=== PATIENT | female | born 1985 | race Asian ===

== ENCOUNTER 2024-08-22 12:48 | Emergency (ER) | payer OTHER ==
[~2024-08-22] VITALS: Ht 167.6 cm; Wt 60.2 kg
--- NOTE | 2024-08-22 13:13 | ED.PDOC ---
History of Present Illness HPI Comments 39-year-old female with no PMHx presents with a chief complaint of SOB and anxiety x 45 minutes ago. Patient states that she was sitting in the car when she began to have an onset of SOB. Patient mentions that she panicked and felt tingling in her hands and came into the ER. Patient is able to speak in full, complete sentences at this time. No signs of acute distress noted. 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 Family History Family History: Reviewed,noncontributory to illness Social History Smoker: Non-Smoker Alcohol: Denies ETOH Use Drugs: Denies Drug Use Lives In: Home Constitutional: denies: chills, diaphoresis, fatigue, fever, malaise, sweats, weakness, others EENTM: denies: blurred vision, double vision, ear bleeding, ear discharge, ear drainage, ear pain, ear ringing, eye pain, eye redness, hearing loss, mouth pain, mouth swelling, nasal discharge, nose bleeding, nose congestion, nose pain, photophobia, tearing, throat pain, throat swelling, voice changes, others Respiratory: reports: shortness of breath; denies: cough, hemoptysis, orthopnea, SOB at rest, SOB with excertion, stridor, wheezing, others Cardiovascular: denies: chest pain, dizzy spells, diaphoresis, Dyspnea on exertion, edema, irregular heart beat, left arm pain, lightheadedness, palpitations, PND, syncope, others Gastrointestinal: denies: abdomen distended, abdominal pain, blood streaked bowels, constipated, diarrhea, dysphagia, difficulty swallowing, hematemesis, melena, nausea, poor appetite, poor fluid intake, rectal bleeding, rectal pain, vomiting, others Genitourinary: denies: abnormal vagina bleeding, burning, dyspareunia, dysuria, flank pain, frequency, hematuria, incontinence, pain, , vagina discharge, urgency, others Neurological: denies: dizziness, fainting, headache, left sided numbness, left sided weakness, numbness, paresthesia, pre-existing deficit, right sided numbness, right sided weakness, seizure, speech problems, tingling, tremors, weakness, others Musculoskeletal: denies: back pain, gout, joint pain, joint swelling, muscle pain, muscle stiffness, neck pain, others Integumetry: denies: bruises, change in color, change in hair/nails, dryness, laceration, lesions, lumps, rash, wounds, others Allergic/Immunocompromised: denies: Difficulty Healing, Frequent Infections, Hives, Itching, others Hematologic/Lymphatic: denies: anemia, blood clots, easy bleeding, easy bruising, swollen glands, others Endocrine: denies: excessive hunger, excessive sweating, excessive thirst, excessive urination, flushing, intolerance to cold, intolerance to heat, u nexplained weight gain, unexplained weight loss, others Psychiatric: reports: anxiety; denies: bipolar disorder, depression, hopeless, panic disorder, schizophrenia, sleepless, suicidal, others All Other Systems: Reviewed and Negative Physical Exam General Appearance: Moderate Distress, Normal HEENT: Normal ENT Inspection, Pharynx Normal, TMs Normal Neck: Full Range of Motion, Non-Tender, Normal, Normal Inspection Respiratory: Chest Non-Tender, Lungs Clear, No Accessory Muscle Use, No Respiratory Distress, Normal Breath Sounds Cardiovascular: No Edema, No JVD, No Murmur, No Gallop, Normal Peripheral Pulses, Regular Rate/Rhythm Breast Exam: Deferred Gastrointestinal: No Organomegaly, Non Tender, No Pulsatile Mass, Normal Bowel Sounds, Soft Genitalia: Deferred Pelvic: Deferred Rectal: Deferred Extremities: No calf tenderness, Normal capillary refill, Normal inspection, Normal range of motion, Non-tender, No pedal edema Musculoskeletal : Apperance: Normal Neurologic: Alert, entertainment production professional II-XII nml as Tested, No Motor Deficits, Normal Affect, Normal Mood, No Sensory Deficits Cerebellar Function: Normal Reflexes: Normal Skin: Dry, Normal Color, Warm Peripheral Pulses: 3+ Radial (R), 3+ Radial (L) Lymphatic: No Adenopathy Was a procedure done? Was a procedure done?: No Differential Dx Considerations may include: Anxiety Urinary tract infection X-Ray, Labs, Meds, VS Vital Signs Date Time Temp Pulse Resp B/P (MAP) Pulse Ox O2 Delivery O2 Flow Rate FiO2 08/22/24 13:06 75 08/22/24 13:03 96.9 86 16 140/82 (101) 97 96.9 Patient alert. Possible anxiety. Saturation pristine on room air. Respiratory rate within normal limits. Heart rate within normal limits. Denies chest pain. Lungs clear. Ambulating without difficulty. No leg swelling. Pristine physical examination. Abdomen is soft nontender. The nausea she is having could be from anxiety. Was given prescription of meclizine. Denies . Chest x-ray reviewed does not show any acute changes. Saturation pristine on room air. Heart rate within normal limits. Respiratory rate within normal limits. Does not meet any criteria. Explained to the patient that she has autonomic disorder. Was told to follow up with her primary care physician. Was told to come back if there is any problem. Time of 1ST Reevaluation: 13:37 Reevaluation 1ST: Improved Patient Education/Counseling: Diagnosis, Treatment Family Education/Counseling: No Family Present Departure 1 Departure Time of Disposition: 13:24 Impression: Primary Impression: Autonomic disorder Disposition: 01 HOME / SELF CARE / HOMELESS Condition: Good e-Prescriptions Meclizine HCl (Meclizine 25) 25 Mg Tab 25 MG PO DAILY for 5 Days, #5 TAB Prov: LIZETH SOTO MD 08/22/24 Discharged With: Self Critical Care Note Critical Care Time?: No Stability Stability form required: No Heart Score Heart Score: Heart Score Response (Comments) Value History N/A 0 EKG N/A 0 Age N/A 0 Risk Factors N/A 0 Troponin N/A 0 Total 0 I personally scribed for LIZETH SOTO MD ([email or web address]) on 08/22/24 at 13:13. Electronically submitted by Maxim Johnston ([email or web address]). LIZETH SOTO MD Aug 22, 2024 13:13
[2024-08-22] MEDS ORDERED: MECL1TAB42 PO (13:24)
[2024-08-22] MEDS ORDERED: ACETAMINOPHEN 325 MG TAB PO ONE (13:30)
--- NOTE | 2024-08-22 14:14 | DVH ---
CHEST RADIOGRAPH Indication: sob Technique: Single frontal view of the chest was obtained Comparison: None FINDINGS: The cardiac silhouette is unremarkable. The lungs demonstrate no pulmonary airspace consolidation. Th e pulmonary vasculature is unremarkable. There is no pleural effusion.. There is no pneumothorax. IMPRESSION: 1. No pulmonary airspace consolidation.
--- NOTE | 2024-08-22 14:46 | ECG ---
[facility], [place] Test Date: 2024-08-22 Test Time: 13:06:11 Pat Name: CASTRO TA Department: ER Room: Gender: F Shade Classifier: [id number] : [id number] Requested By: LIZETH SOTO Order Number: [id number] Reading MD: Arnoldo Gonzalez Measurements Intervals [place] Rate: 75 P: 77 MN: 157 QRS: 39 QRSD: 99 T: 24 QT: 413 QTc: 462 Interpretive Statements Sinus rhythm Probable left atrial enlargement RSR' in V1 or V2, right VCD or RVH Baseline wander in lead(s) III,aVL,V1,V4 Electronically Signed On 08-22-2024 22:37:02 PDT by Arnoldo Gonzalez Please click the below link to view image of tracing.
[2024-08-22 15:47] VITALS: BP 116/74; PULSE 67; RESP 16; TEMP 98.7; O2SAT 99
== END 2024-08-22 15:50 | disposition home or self-care (01) ==
LOC: ER 12:59
DX: G90.9 Disorder of the autonomic nervous system, unspecified (principal); R06.02 Shortness of breath; R20.2 Paresthesia of skin; F41.9 Anxiety disorder, unspecified; Z98.890 Other specified postprocedural states; Z79.899 Other long term (current) drug therapy
CPT/HCPCS: 71045; 93005